=== PATIENT | female | born 1950 | race Caucasian/White ===

== ENCOUNTER → 2016-05-02 | Day surgery (SDC) | payer BC, OTHER ==
[2016-04-07 07:39] VITALS: Ht 165.1 cm; Wt 65.9 kg
[~2016-05-02] VITALS: Ht 165.1 cm; Wt 65.9 kg
[~2016-05-02] MED LIST: ASPI81TA25 PO; BRIM0.1S OPL; BRIMONIDINE TART 0.2% OP SOLN PER DROP CHARGE OPL ONE; BRIMONIDINE TART 0.2% OP SOLN PER DROP CHARGE OPL SCH; BRIMONIDINE TARTRATE 0.2% 5ML OP SCH; CALCTAB65 PO; PILOCARPINE HCL 2% OP SOLN PER DROP CHARGE OPL SCH; PROPARACAINE 0.5% OP SOLN PER DROP CHARGE OPL SCH; PROPARACAINE 0.5% OP SOLN PER DROP CHARGE OPR SCH; PrednisoLONE ACET 1% OP SUSP 5 ML BTL OP SCH; TIMO0.05 OPB; TRAV0.00 OPB; [UNRECOGNIZED DRUG - OTHER] PO
--- NOTE | 2016-05-02 11:09 | History and Physical: Surg Cnt ---
History & Physical Date May 02, 2016. Chief Complaint glaucoma, left eye History of Present Illness The patient is a 65 year old female with complaints of glaucoma, left eye Past Medical/Surgical History Medical Problems: (1) History of - tubal ligation (2) Pneumonia Additional History Hepatic Disease: No Endocrine Disorder: No Kidney Disease: No Hypertension: No Heart Disease: Yes Bleeding Tendencies: No Infectious Diseases: No Allergies Coded Allergies: Codeine (Verified Allergy, Unknown, HYPERACTIVITY, 04/07/16) Home Medications Scheduled Aspirin (Aspir-Low), 81 MG PO Q2D Brimonidine Tartrate (Alphagan P Oph), 1 DROP OPL BID Calcium Carbonate-Vitamin D (Calcium 500 + D), 500 MG PO BID Timolol Maleate (Ophth) (Timoptic 0.25% Oph), 1 DROP OPB BID Travoprost (Travatan Z), 1 DROP OPB HS [It Works], 1 TAB PO BID Physical Examination Skin: warm/dry, no rash Eyes: normal inspection, EOMI, sclerae normal ENT: normal ENT inspection, pharynx normal Head: normocephalic, atraumatic Neck: supple, no adenopathy, trachea midline Respiratory/Chest: lungs clear, normal breath sounds, no respiratory distress Cardiovascular: regular rate, rhythm, no edema, no murmur Abdomen / GI: normal bowel sounds, non tender Back: normal inspection Extremities: normal inspection, normal range of motion Neurologic/Psych: no motor/sensory deficits, alert, normal reflexes, oriented x 3 Diagnosis glaucoma, left eye ASA Classification: ASA Class II Plan of Treatment SLT, left eye
[2016-05-02 11:40] VITALS: BP 140/87; PULSE 67; O2SAT 99
--- NOTE | 2016-05-02 11:45 | Discharge Instructions-SurgCtr ---
Discharge Instructions Date of Service May 02, 2016. Visit Reason for Visit: Glaucoma Left Eye Discharge Discharge Diagnosis / Problem: glaucoma Discharge Goals Goal(s): Improve disease control Activity Recommendations Activity Limitations: per Instructions/Follow-up section Anesthesia . Post Anesthesia Instructions: If you have had General Anesthesia or IV Sedation: * Do not drive today. * Resume driving when surgeon permits. * Do not make important decisions or sign legal documents today. * Call surgeon for: 1. Temperature elevations greater than 101 degrees F. 2. Uncontrollable pain. 3. Excessive bleeding. 4. Persistent nausea and vomiting. 5. Medication intolerance (nausea, vomiting or rash). * For nausea and vomiting use only clear liquids such as: tea, soda, bouillon until nausea subsides, then gradually increase diet as tolerated. * If you have any concerns or questions, call your surgeon's office. If physician is unavailable and it is an emergency, call 911 or go to the nearest emergency room. . Instructions / Follow-Up Instructions / Follow-Up ACTIVITY RECOMMENDATIONS: * No limitations RETURN TO SCHOOL/WORK: * No limitations DIET: * No limitations MEDICATIONS: Resume previous medications unless instructed otherwise by your surgeon. * Please use Prednisolone acetate drops prescription given to you at your office appointment as follows: 1 drop in effected eye 4 times a day for 5 days. * Continue all glaucoma drops as usual with no interruption to either eye. SPECIAL CARE INSTRUCTIONS: Call your doctor at with any concerns or problems. FOLLOW UP VISIT: Follow-up with Dr Sotelo in 1 hour. Diet Recommendations Home Diet: resume previous diet Pending Studies Studies pending at discharge: no Medical Emergencies . Who to Call and When: Medical Emergencies: If at any time you feel your situation is an emergency, please call 911 immediately. . Non-Emergent Contact Non-Emergency issues call your: Relief Salesperson . . "Provider Documentation" section prepared by Bin Sotelo.
--- NOTE | 2016-05-02 11:46 | [facility] Operative Report ---
Operative Report Date of Service May 02, 2016. Operative Report Diagnosis: Glaucoma, left eye Procedure: SLT left eye, superior 180 degrees, 46 spots, 1.6 mj Complications: none I attest to the content of the Intraoperative Record and any orders documented therein. Any exceptions are noted below.
== END | disposition home or self-care (01) ==
LOC: X.SURG 10:06
PROVIDERS: ATTEND Ophthalmology
DX: H40.9 Unspecified glaucoma (principal); I10 Essential (primary) hypertension; Z79.82 Long term (current) use of aspirin

== ENCOUNTER → 2016-10-11 | Outpatient (CLI) | payer BC ==
[~2016-10-11] MED LIST changes: -BRIMONIDINE TART 0.2% OP SOLN PER DROP CHARGE OPL ONE; -BRIMONIDINE TART 0.2% OP SOLN PER DROP CHARGE OPL SCH; -BRIMONIDINE TARTRATE 0.2% 5ML OP SCH; -PILOCARPINE HCL 2% OP SOLN PER DROP CHARGE OPL SCH; -PROPARACAINE 0.5% OP SOLN PER DROP CHARGE OPL SCH; -PROPARACAINE 0.5% OP SOLN PER DROP CHARGE OPR SCH; -PrednisoLONE ACET 1% OP SUSP 5 ML BTL OP SCH
--- NOTE | 2016-10-11 13:49 | MAMMOGRAPHY REPORT ---
BILATERAL DIGITAL SCREENING MAMMOGRAM WITH CAD: 10/11/2016 CLINICAL HISTORY: Routine screening. Patient has no complaints. TECHNIQUE: Current study was also evaluated with a Computer Aided Detection (CAD) system. Bilateral CC and MLO views were obtained. COMPARISON: Comparison is made to exams dated: 11/01/2015 mammogram, 10/07/2015 mammogram, 10/02/2014 ma mmogram, 09/26/2013 mammogram, 09/25/2012 mammogram - [facility], and 09/10/2008. BREAST COMPOSITION: There are scattered areas of fibroglandular density in both breasts. FINDINGS: No suspicious masses, calcifications, or areas of architectural distortion are noted in ei ther breast. There has been no significant interval change compared to prior exams. A biopsy marker clip is again noted within a right axillary lymph node. Left medial breast asymmetry is stable. IMPRESSION: ACR BI-RADS CATEGORY 2: BENIGN There is no mammographic evidence of malignancy. A 1 year screening mammogram is recommended. The pa tient will receive written notification of the results. Approximately 10% of breast cancers are not detected with mammography. A negative mammographic report should not delay biopsy if a clinically suggestive mass is present. Malou Schaefer M.D. /:10/11/2016 07:46:19 Curing Oven Attendant: Alejandra MENEZES)(Jose), [facility] letter sent: Normal 1/2 BI-RADS Code: ACR BI-RADS Category 2: Benign
== END | disposition home or self-care (01) ==
LOC: C.MAMM 07:18
PROVIDERS: ATTEND Family Medicine
DX: Z12.31 Encounter for screening mammogram for malignant neoplasm of breast (principal)

== ENCOUNTER → 2017-04-03 | Outpatient (CLI) | payer OTHER ==
[~2017-04-03] VITALS: Ht 165.1 cm; Wt 62.0 kg
[~2017-04-03] MED LIST changes: +BENZOCAIN/TETRACA/BUTAM SPRAY 200 APPLN/20 GM SPRY ONE; +CANNULA ONE; +DORZ2SOL20 OP; +FENTANYL CITRATE INJ 50 MCG/1 ML 2 ML VIAL ONE; +GLYCOPYRROLATE INJ 0.2 MG/ML VIAL ONE; +MIDAZOLAM HCL 1 MG/ML 2ML VIAL ONE; +ONDA8TAB6 PO; +PRED20TA2 PO; +PRLSR20 PO; +SODI PO
[2017-04-03 07:35] VITALS: BP 150/64; PULSE 73; TEMP 36.8; O2SAT 100; Ht 165.1 cm; Wt 62.0 kg
--- NOTE | 2017-04-03 07:57 | History & Physical Bridge Note ---
H&P Re-Evaluation Bridge Note: I have examined the patient, reviewed the History & Physical and in the interval since the performance of the History & Physical I have noted the following changes of clinical significance: No changes noted
--- NOTE | 2017-04-03 08:20 | Pre Sedation Assessment ---
Pre Sedation Assessment General Date of Sedation: Apr 03, 2017. Vital Signs Past 12 Hours Date Time Temp Pulse Resp B/P (MAP) Pulse Ox O2 Delivery O2 Flow Rate FiO2 04/03/17 07:35 36.8 73 12 150/64 (92) 100 Room Air Review Cardiovascular: regular rate, rhythm, no edema, no gallop, no JVD, no murmur, normal peripheral pulses Lungs: chest non-tender, lungs clear, normal breath sounds, no respiratory distress, no accessory muscle use Pre-Sedation Airway Assessment Smoking Status: Never Smoker Hx of Sleep Apnea: No Short Thick Neck: No Thyro-mental Distance: > 3 Finger Breadths Oral Cavity: Chipped Teeth Mallampati Classification: Class II ASA Classification: Class II NPO Status Date of Last Intake of Fluids: Apr 02, 2017 Time of Last Intake of Fluids: 2199 Date of Last Intake of Solids: Apr 02, 2017 Time of Last Intake of Solids: 0 Notes The planned sedation has been discussed with the patient. Informed Consent was obtained. I have identified the patient, determined the appropriateness of sedation and have assessed the patient immediately prior to the procedure. All medicine(s) and interventions are by my order.
[2017-04-03 08:26] VITALS: BP 141/52; PULSE 86; O2SAT 100
[2017-04-03 08:30] VITALS: BP 121/47; PULSE 80; O2SAT 100
[2017-04-03 08:35] VITALS: BP 114/53; PULSE 85; O2SAT 96
[2017-04-03 08:40] VITALS: BP 112/50; PULSE 86; O2SAT 100
--- NOTE | 2017-04-03 08:51 | Post Sedation Assessment ---
Post Sedation Assessment General Date of Sedation Apr 03, 2017. Vital Signs: Vital Signs Past 12 Hours Date Time Temp Pulse Resp B/P (MAP) Pulse Ox O2 Delivery O2 Flow Rate FiO2 04/03/17 08:43 86 19 112/48 (69) 100 Nasal Cannula 2 04/03/17 07:35 36.8 73 12 150/64 (92) 100 Room Air Post Procedure Recovery Score Activity: (2) Moves 4 extremities * Respiration: (2) Deep breath/cough Circulation: (2) +/-20% PreAnes Value Consciousness: (2) Fully Awake Oxygen Saturation: (2) > 92% On Room Air Post Anesthesia Score: 8 Discharge Sedation Level of Care: Fast Track Phase II Post Sedation Plan On clinical assessment, the patient appears to have tolerated the sedation without complications. Patient is recovering as anticipated. Patient will continue to be monitored by nursing and may be discharged when sedation discharge criteria are met per below protocol. Upon Completions of procedure and additional 15 minutes continue every 5 minute vital signs and the P.A.R. score; then discharge to a Phase I or Fast Track to Phase II per the following guidelines: * Discharge Patient to appropriate Phase II area if PAR is 8 or greater or return to pre- procedure baseline. The post - procedure orders will be as directed. * If PAR score is less than 8 or not return to pre-procedure baseline then patient will follow Phase I monitoring till PAR is reached for Phase II. The Phase I may be done in procedure room or may call to secure a Phase I area. * If naloxone or flumazenil are used for reversal, hold in Phase I for an additional 60 -120 minutes before discharge to Phase II. Please call the Sedation Physician to re-evaluate and complete post-note for discharge to Phase II area. Do NOT discharge from procedure sedation or Phase 1 until post- sedation evaluation note is complete by procedure /sedation MD Sedation Discharge Instructions to be given to the patient at discharge to home.
--- NOTE | 2017-04-03 08:53 | [facility] Post Operative Brief Note ---
Immediate Operative Summary Operative Date Apr 03, 2017. Pre-Operative Diagnosis tricuspid valve mass Post-Operative Diagnosis tricuspid valve prolapse Procedure(s) Performed AUSTYN Start time: 825 Stop time: 841 conscious sedation achieved with Versed 3mg and Fentanyl 75mcg Surgeon Manuel Stringer Machine Tender Surgeon(s) Samanta BONNER Estimated Blood Loss none Findings Consistent with Post-Op Diagnosis Specimens none Drains None Anesthesia Type IV Sedat Cons RN Only Complication(s) none Disposition Accompanied Pt To Recover: yes Disposition: cpl
--- NOTE | 2017-04-03 08:55 | Procedure Note ---
Procedure Note Date of Service Apr 03, 2017. Procedure Note informed consent obtained pt prepped conscious sedation achieved with Versed 3mg and Fentanyl 75mcg AUSTYN performed revealing tricuspid valve prolapse with mild regurgitation, no mass present tolerated well no complication recover in CPL per protocol Plan: no cardiac f/u necessary no med changes
[2017-04-03 09:21] VITALS: BP 101/43; PULSE 76; O2SAT 98
--- NOTE | 2017-04-03 09:21 | Discharge Instructions ---
Discharge Instructions Date of Service Apr 03, 2017. Admission Reason for Admission: Mass Dr Jackson Doing Discharge Discharge Diagnosis / Problem: tricuspid valve prolapse Discharge Goals Goal(s): Diagnostic testing Activity Recommendations Activity Limitations: resume your previous activity Lifting Limitations: none Exercise/Sports Limitations: as tolerated May Resume Sexual Activity: when tolerated Shower/Bathe: no limitations Driving or Machine Use: resume 1 day after discharge . Current Hospital Diet Patient's current hospital diet: Discharge Diet Recommended Diet: Regular Diet (no hot liquids or hard foods, i.e. pretzels, for 8 hours) Procedures Procedures Performed: AUSTYN Start time: 825 Stop time: 841 conscious sedation achieved with Versed 3mg and Fentanyl 75mcg Pending Studies Studies pending at discharge: no Medical Emergencies . Who to Call and When: Medical Emergencies: If at any time you feel your situation is an emergency, please call 911 immediately. . Non-Emergent Contact Non-Emergency issues call your: Primary Care Provider . . "Provider Documentation" section prepared by Benedict Jackson. . VTE Core Measure Inpt VTE Proph given/why not?: Treatment not indicated
--- NOTE | 2017-04-03 13:35 | TEE ---
*NOTICE TO RECEIVING DEMOCRAT AGENCY This information is strictly Confidential and protected under [place] law. [place] law prohibits you from making any further disclosure of this information unless further disclosure is expressly permitted by the written consent of the person to whom it pertains or is authorized by law. A general authorization for the release of medical or other information is not sufficient for this purpose. Hospital accepts no responsibility if the information is made available to any other person, INCLUDING THE PATIENT. Interpretation Summary * Name: VIKAS SOLIZ Study Date: 04/03/2017 07:57 AM BP: 141/52 mmHg * Patient Location: [facility] HR: 85 * : 1950 (M/d/yyyy) Gender: Female Height: 65 in * Age: 66 yrs Ethnicity: CA Weight: 135 lb * Ordering Physician: Benedict Jackson DO * Performed By: Yasmeen Baires RDCS * * Reason For Study: Mass * BSA: 1.7 m2 * -- Conclusions -- * Robinul 0.4 mg administered for to reduce oral secretions. * Normal LV chamber size and systolic function. * Prolapse of the lateral tricuspid leaflet with mild tricuspid regurgitation. No tricuspid valve masses present. Procedure Details * The transesophageal portion of this study was personally supervised by the undersigned interpreting physician. * The study was performed in Cardiac Catheterization Lab. * Time out was conducted by the physician, nurse, and technology consultant with positive identification of patient and procedure. * Informed consent for Transesophageal Echocardiogram was obtained prior to the procedure. * An intravenous line was placed. A topical anesthetic agent was used for oropharangeal anesthesia. A bite block was inserted. * The patient's vital signs, including blood pressure, heart rate, pulse oximetry and cardiac rhythm were monitored throughout the procedure . * Fentanyl 75 mcg was administered for procedural sedation. * Robinul 0.4 mg administered for to reduce oral secretions. * Midazolam 3 mg administered for sedation. * The posterior oropharynx was anesthetized using a topical anesthetic spray. A bite guard was inserted. * A multifrequency, multiplane transesopheageal echocardiographic endoscope was inserted and manipulated in the standard fashion to achieve multiplane views. * The transesophageal probe was passed without difficulty. * The usual views were obtained; basal, mid-esophageal, transgastric and aortic views. * The patient tolerated the procedure well without evidence of orophangeal or esophageal trauma. * A 2D transesophageal echocardiogram with spectral and color flow Doppler was performed. * Contrast injection with agitated saline was performed. * Start time 0826 End time 0842 Utilized probe #3 for procedure. * A 2D transesophageal echocardiogram with Doppler and color flow Doppler was performed. Left Ventricle * The left ventricle is normal in size. Atria * The left atrial size is normal. * Right atrial size is normal. * The interatrial septum is intact with no evidence for an atrial septal defect. Mitral Valve * The mitral valve is normal in structure and function. Tricuspid Valve * There is moderate tricuspid valve prolapse. * There is no tricuspid stenosis. * There is mild tricuspid regurgitation. Aortic Valve * The aortic valve is normal in structure and function. Pulmonic Valve * The pulmonary valve is not well seen, but the Doppler examination is normal without significant regurgitation or stenosis. Great Vessels * The aortic root and proximal ascending aorta are normal sized. Pericardium * There is no pericardial effusion.
== END | disposition home or self-care (01) ==
LOC: C.CPL 06:28
PROVIDERS: ATTEND Internal Medicine Cardiovascular Disease
DX: I07.9 Rheumatic tricuspid valve disease, unspecified (principal)